=== PATIENT | male | born 1985 | race Caucasian/White ===

== ENCOUNTER 2016-11-09 17:54 | Emergency (ER) | payer SELFPAY ==
[~2016-11-09] VITALS: Ht 170.2 cm; Wt 73.9 kg
[2016-11-09 22:35] VITALS: BP 115/90
== END 2016-11-09 22:35 | disposition home or self-care (01) ==
LOC: ED 17:54
DX: R42 Dizziness and giddiness (principal); H93.8X2 Other specified disorders of left ear; J34.89 Other specified disorders of nose and nasal sinuses
CPT/HCPCS: J8597

== ENCOUNTER 2017-02-07 19:10 | Emergency (ER) | payer SELFPAY ==
[2017-02-07 21:00] LABS: AMPHETAMINE QUAL UR NONE DETECTED (NEG <=1000)
[2017-02-07 22:06] VITALS: BP 121/69
== END 2017-02-07 22:06 | disposition home or self-care (01) ==
LOC: ED 19:10
PROVIDERS: Emergency Medicine
DX: R20.2 Paresthesia of skin (principal); F17.210 Nicotine dependence, cigarettes, uncomplicated; R53.1 Weakness; R47.81 Slurred speech